=== PATIENT | female | born 1935 | race Caucasian/White ===

== ENCOUNTER 2021-09-18 17:36 | Inpatient (IN) | payer MEDICARE, MEDICAID ==
[~2021-09-18] VITALS: Ht 152.4 cm; Wt 53.3 kg
[~2021-09-18 17:36] MED LIST: AMLO5TAB4; ASPI-785; CLOP75TA33 PO; GABA-529 PO; HYDR-523 PO; LOSA25TA26 PO; NITR-87; ROSU20TA2 PO; VALA10002 PO; VALA500T
[2021-09-18 19:59] LABS: CHLORIDE 108 mEq/L (98-107)
[2021-09-18 20:51] LABS: MEAN CORPUSCULAR HEMOGLOBIN 34.4 pg (28.0-32.0); MEAN CORPUSCULAR VOLUME 98.5 fL (81.0-99.0); MEAN PLATELET VOLUME 7.9 fl (7.4-10.4); RED BLOOD CELL COUNT 1.93 mill/uL (4.2-5.4); RED CELL DISTRIBUTION WIDTH 21.4 % (11.6-14.6)
[2021-09-18 20:57] LABS: HEMOGLOBIN. 6.6 g/dL (12.0-16.0); PLATELET 16 x1000/uL (130-400)
[2021-09-18 21:34] LABS: PLATELET ESTIMATE MARKEDLY DECREASED
[2021-09-19] VITALS (10 sets, daily range): BP systolic 96–138; BP diastolic 35–57
[2021-09-19 08:25] LABS: HEMATOCRIT. 21.6 % (36.0-48.0); HEMOGLOBIN. 7.5 g/dL (12.0-16.0); MEAN CORPUSCULAR HEMOGLOBIN 32.9 pg (28.0-32.0); MEAN CORPUSCULAR VOLUME 94.9 fL (81.0-99.0); MEAN PLATELET VOLUME 7.9 fl (7.4-10.4); RED BLOOD CELL COUNT 2.28 mill/uL (4.2-5.4); RED CELL DISTRIBUTION WIDTH 19.1 % (11.6-14.6)
[2021-09-19 08:44] LABS: PLATELET 11 x1000/uL (130-400)
[2021-09-19 09:15] LABS: CHLORIDE 110 mEq/L (98-107)
[2021-09-19 09:55] LABS: NUCLEATED RED BLOOD CELLS 1 /100 WBC
[2021-09-19 09:56] LABS: PLATELET ESTIMATE MARKEDLY DECREASED
[2021-09-19] MEDS ORDERED: HYDROCODONE/ACETAMINOPHEN 5/325MG TABLET PO PRN (13:00)
[2021-09-19] MEDS: AMLODIPINE 5MG TABLET PO SCH (13:25)
[2021-09-19] MEDS: LOSARTAN POTASSIUM 25 MG TABLET PO SCH (13:25)
[2021-09-19] MEDS: GABAPENTIN 100MG CAPSULE PO SCH ×3 (13:29→22:00)
[2021-09-19] MEDS ORDERED: NALOXONE HCL 0.4MG/ML VIAL IV PRN (13:30)
[2021-09-19] MEDS ORDERED: MAGNESIUM/ALUMINUM HYDROXIDE/SIMETHICONE 30ML UDC PO PRN (16:15)
[2021-09-19] MEDS ORDERED: NA PHOS,M-B/NA PHOS,DI-BA ENEMA 118ML PR PRN (16:15)
[2021-09-19] MEDS ORDERED: ONDANSETRON HCL 4MG/2ML INJ IV PRN (16:15)
[2021-09-19] MEDS ORDERED: CLONIDINE 0.1MG TABLET PO PRN (16:15)
[2021-09-19] MEDS ORDERED: IPRATROPIUM/ALBUTEROL 0.5-3(2.5)MG/3ML NEB HHN PRN (16:15)
[2021-09-19] MEDS ORDERED: DOCUSATE SODIUM 100MG CAPSULE PO PRN (16:15)
[2021-09-19] MEDS ORDERED: ACETAMINOPHEN 325MG TABLET PO PRN ×2 (16:15)
[2021-09-19] MEDS ORDERED: GUAIFENESIN 200MG/10ML SUGAR FREE UDC PO PRN (16:15)
[2021-09-19] MEDS ORDERED: ACETAMINOPHEN 650MG SUPP PR PRN ×2 (16:15)
[2021-09-19] MEDS ORDERED: GUAIFENESIN/CODEINE 200-20MG/10ML UDC PO PRN (21:00)
[2021-09-19] MEDS ORDERED: GABAPENTIN 100MG CAPSULE PO SCH (21:15)
[2021-09-19] MEDS: FLUTICASONE PROPIONATE 50MCG/SPRAY BOTTLE BOTHNSTRLS SCH (22:17)
[2021-09-20] VITALS (12 sets, daily range): BP systolic 100–129; BP diastolic 41–70
[2021-09-20] MEDS: GABAPENTIN 100MG CAPSULE PO SCH ×2 (05:20→14:30)
[2021-09-20 06:35] LABS: MEAN CORPUSCULAR HEMOGLOBIN 33.4 pg (28.0-32.0); MEAN CORPUSCULAR VOLUME 95.6 fL (81.0-99.0); MEAN PLATELET VOLUME 7.8 fl (7.4-10.4); RED BLOOD CELL COUNT 2.13 mill/uL (4.2-5.4); RED CELL DISTRIBUTION WIDTH 19.3 % (11.6-14.6)
[2021-09-20 06:49] LABS: CHLORIDE 110 mEq/L (98-107)
[2021-09-20 06:50] LABS: HEMATOCRIT. 20.4 % (36.0-48.0); HEMOGLOBIN. 7.1 g/dL (12.0-16.0)
[2021-09-20 07:07] LABS: CREATINE KINASE 23 IU/L (26-192); HDL CHOLESTEROL 48 mg/dL (40-59); LDL CHOLESTEROL 82 mg/dL (5-100)
[2021-09-20] MEDS ORDERED: MULTIVITAMINS,THER W-MINERALS TABLET PO SCH (09:00)
[2021-09-20] MEDS ORDERED: MEGESTROL ACETATE 400 MG/10 ML UDC PO SCH (09:00)
[2021-09-20] MEDS: FLUTICASONE PROPIONATE 50MCG/SPRAY BOTTLE BOTHNSTRLS SCH (09:16)
[2021-09-20] MEDS: LOSARTAN POTASSIUM 25 MG TABLET PO SCH (09:16)
[2021-09-20] MEDS: AMLODIPINE 5MG TABLET PO SCH (09:17)
[2021-09-20 12:49] LABS: PLATELET 35 x1000/uL (130-400); PLATELET ESTIMATE MARKEDLY DECREASED
== END 2021-09-20 18:05 | disposition home health service (06) | DRG 840 ==
LOC: ER 17:36 → 6WST 23:14 → ENRESERV 09-19 02:39
PROVIDERS: ADMIT Family Medicine Adult Medicine; ATTEND Family Medicine Adult Medicine
PROC: 30233N1 Transfusion of Nonautologous Red Blood Cells into Peripheral Vein, Percutaneous Approach (ICD-10-PCS; 2021-09-18)
PROC: 30233R1 Transfusion of Nonautologous Platelets into Peripheral Vein, Percutaneous Approach (ICD-10-PCS; principal; 2021-09-19)
DX: C92.10 Chronic myeloid leukemia, BCR/ABL-positive, not having achieved remission (principal); E43 Unspecified severe protein-calorie malnutrition; D61.818 Other pancytopenia; K92.2 Gastrointestinal hemorrhage, unspecified; D62 Acute posthemorrhagic anemia; D50.9 Iron deficiency anemia, unspecified; E78.00 Pure hypercholesterolemia, unspecified; E78.5 Hyperlipidemia, unspecified; E87.6 Hypokalemia; G89.29 Other chronic pain; I10 Essential (primary) hypertension; M19.90 Unspecified osteoarthritis, unspecified site; D46.9 Myelodysplastic syndrome, unspecified; J44.9 Chronic obstructive pulmonary disease, unspecified; K21.9 Gastro-esophageal reflux disease without esophagitis; Z86.73 Personal history of transient ischemic attack (TIA), and cerebral infarction without residual deficits; Z90.49 Acquired absence of other specified parts of digestive tract; Z68.22 Body mass index [BMI] 22.0-22.9, adult; Z91.041 Radiographic dye allergy status; Z91.013 Allergy to seafood; Z79.82 Long term (current) use of aspirin; Z79.899 Other long term (current) drug therapy
CPT/HCPCS: 36415; 36430; 71045; 80048; 80053; 80061; 82550; 83605; 83880; 84443; 84484; 84550; 85025; 85384; 86850; 86900; 86920; 93005; 97166; 99285; P9016; P9035